=== PATIENT | male | born 1980 | race Caucasian/White ===

== ENCOUNTER 2020-02-05 21:22 | Emergency (ER) | payer OTHER ==
[2020-02-05 21:30] VITALS: BP 126/84; PULSE 60; TEMP 98.4; BMI 24.4
--- NOTE | 2020-02-05 21:47 | PDOC ---
Documentation entered by Alicia Estrada SCRIBE, acting as scribe for Ashwin Banks MD. Ashwin Banks MD: This documentation has been prepared by the ricaibe, Alicia Estrada SCRIBE, under my direction and personally reviewed by me in its entirety. I confirm that the documentation accurately reflects all work, treatment, procedures, and medical decision making performed by me. History of Present Illness - General Chief Complaint: Redness To Affected Area Stated Complaint: RIGHT WRIST PAIN & REDNESS Time Seen by Provider: 02/05/20 21:28 History Source: Patient Exam Limitations: No Limitations - History of Present Illness Initial Comments: 02/05/20 21:35 The patient is a 39-year-old male who presents to the emergency department with right wrist pain and swelling since 5:00 pm today. The patient denies any known injury or trauma to the wrist. Denies a history of gout. Denies fever or chills. The patient reports he was lifting dumbbells earlier today, which the patient reports hes been doing for a long time. The patient reports injuring his right 2nd and 3rd finger when he was young, reports numbness to the fingers in the morning. PAST MEDICAL HISTORY: Denies history of gout. PAST SURGICAL HISTORY: no significant history FAMILY HISTORY: no pertinent history SOCIAL HISTORY: Pt lives with family. MEDICATIONS: reviewed ALLERGIES: As per nursing notes Review of system: General: No fevers or chills, no weakness, no weight loss HEENT: No change in vision. No sore throat,. No ear pain CardioVascular: No chest pain or shortness of breath Respiratory:No cough, or wheezing. Gastrointestinal: no nausea, vomiting, diarrhea or constipation, No rectal bleeding Genitourinary: No dysuria, hematuria, or frequency Musculoskeletal: +right wrist pain and swelling. No other joint or muscle pain or swelling Neurologic: No headache, vertigo, dizziness or loss of consciousness Psychiatric: nor depression Skin: No rashes or easy bruising Endocrine: no increased thirst or abnormal weight change Allergic: no skin or latex allergy All other systems reviewed and normal Physical exam: GENERAL: The patient is awake, alert, and fully oriented, in no acute distress. HEAD: Normal with no signs of trauma. EYES: Pupils equal, round and reactive to light, extraocular movements intact, sclera anicteric, conjunctiva clear. EXTREMITIES: Right wrist: mild erythema and swelling over the ulnar styloid area. There is mild tenderness on palpation, full range of motion with mild discomfort. Neurovascularly distally intact. NEUROLOGICAL: Normal speech, normal gait. PSYCH: Normal mood, normal affect. SKIN: Warm, Dry, normal turgor, no rashes or lesions noted. 02/05/20 21:47 Assessment and plan: This a 39-year-old male who comes in complaining of right lateral wrist pain. Patient said it began this evening. Patient denies any trauma or injury or overuse repetitive type motions. Patient denies any systemic symptoms. On my exam there was some mild tenderness over the area with some mild erythema however minimal discomfort with range of motion and no increase in warmth. X-ray was done which was read as negative Uric acid was sent and patient was referred to a 02/05/20 22:08 X-ray shows old ulnar styloid fracture with some degenerative changes in the area most likely secondary to arthritic type changes and they are most likely contributing to the discomfort patient is experiencing. Patient was given a relatively inflammatory and discharged. Past History - Medical History Allergies/Adverse Reactions: Allergies Allergy/AdvReac Type Severity Reaction Status Date / Time No Known Allergies Allergy Verified 02/05/20 21:24 Home Medications: Ambulatory Orders Naproxen [Naprosyn -] 500 mg PO ONCE 02/05/20 COPD: No Other medical history: RIGHT & LEFT WRIST FRACTURE - Psycho-Social/Smoking History Smoking Status: Yes Smoking History: Current every day smoker Years of Tobacco Use: 20 Number of Cigarettes Smoked Daily: 10 Information on smoking cessation initiated: Yes 'Breaking Loose' booklet given: 02/18/15 - Substance Abuse Hx (Audit-C & DAST Scrn) How often the patient has a drink containing alcohol: Monthly or less How often the patient has six or more drinks on one occasion: Never Score: In Men: 4 or > Positive; In Women: 3 or > Positive: 1 Screen Result (Pos requires Nsg. Audit-10AR): Negative In the last yr the pt used illegal drug/Rx for NonMed reason: No Score: Yes response is considered Positive: 0 Screen Result (Positive result requires Nsg. DAST-10): Negative *Physical Exam - Vital Signs Last Vital Signs Temp Pulse Resp BP Pulse Ox 98.4 F 60 15 126/84 98 02/05/20 21:23 02/05/20 21:23 02/05/20 21:23 02/05/20 21:23 02/05/20 21:23 Discharge - Discharge Information Problems reviewed: Yes Clinical Impression/Diagnosis: Right wrist pain Condition: Good Disposition: HOME - Admission No - Follow up/Referral Referrals: Tavo Owens [Primary Care Provider] - José Luis Niño MD [Staff Physician] - - Patient Discharge Instructions Additional Instructions: For the pain take an anti-inflammatory ibuprofen or Aleve. Follow-up with the orthopedist this week. Return to the emergency department immediately with ANY new, persistent or worsening symptoms. Continue any medications as previously prescribed by your physician. You should follow up with your primary doctor as soon as possible regarding today's emergency department visit. . Please make sure your doctor reviews the results of your emergency evaluation. Thank you for coming to the Emergency Department today for your care. It was a pleasure to see you today. Please note that your evaluation is INCOMPLETE until you follow-up with your doctor. - Post Discharge Activity
[2020-02-05] MEDS ORDERED: IBUPROFEN 400 MG TABLET (FP) PO ONE ×2 (21:49→22:04)
== END 2020-02-05 22:12 | disposition home or self-care (01) ==
LOC: FER 21:22
DX: M25.531 Pain in right wrist (principal)
CPT/HCPCS: 36415; 73110-TC-RT-FY; 84550; 99284-25